=== PATIENT | female | born 1930 | race Hispanic/Latino ===

== ENCOUNTER 2018-06-25 08:44 | Outpatient (CLI) | payer MEDICARE, BC | END 2018-06-25 08:45 | disposition home or self-care (01) | LOC: LAB 08:44 ==

== ENCOUNTER 2018-07-28 08:42 | Outpatient (CLI) | payer MEDICARE, BC | END 2018-07-28 08:43 | disposition home or self-care (01) | LOC: LAB 08:42 ==

== ENCOUNTER 2018-10-04 13:38 | Emergency (ER) | payer MEDICARE, BC ==
[2018-10-04 13:52] VITALS: TEMP 98.6; BMI 29.5
[2018-10-04] MEDS ORDERED: Sodium Chloride 0.9% 1,000 ML IV SCH (14:15)
[2018-10-04 14:53] LABS: ALB/GLOB RATIO 1.3 (1.1-1.8); ALBUMIN 4.8 g/dL (3.0-4.8); ALT/SGPT 17 U/L (7-56); AST/SGOT 23 U/L (14-36); BLOOD UREA NITROGEN 18 mg/dL (7-21); CALCIUM 9.6 mg/dL (8.4-10.5); GFR NON-AFRICAN AMERICAN > 60; LIPASE 132 U/L (23-300)
[2018-10-04 14:55] LABS: BASO # 0.01 K/mm3 (0.0-2.0); BASO % 0.2 % (0.0-3.0); EOS % 0.7 % (1.5-5.0); LYMPH # 2.9 (1.2-3.4); LYMPH % 47.6 % (22.0-35.0); MEAN CELL VOLUME 88.6 fl (80.0-105.0); MEAN CORPUSCULAR HEMOGLOBIN 29.1 pg (25.0-35.0); MEAN CORPUSCULAR HGB CONC 32.8 g/dl (31.0-37.0); MEAN PLATELET VOLUME 9.6 fl (7.0-11.0); MONO # 0.4 (0.1-0.6); MONO % 6.8 % (1.0-6.0); RBC 4.47 10^6/uL (3.5-6.1); RED CELL DISTRIBUTION WIDTH 13.4 % (11.5-14.5)
[2018-10-04 15:05] LABS: TROPONIN I < 0.01 ng/mL
[2018-10-04 15:07] LABS: VENOUS BLOOD GAS BASE EXCESS 2.5 mmol/L (0.0-2.0); VENOUS BLOOD GAS PO2 78 mm/Hg (30-55)
[2018-10-04 15:11] LABS: URINE BILIRUBIN NEGATIVE (NEGATIVE); URINE BLOOD NEGATIVE (NEGATIVE); URINE GLUCOSE (UA) NEGATIVE (NEGATIVE); URINE LEUKOCYTE ESTERASE NEGATIVE Leu/uL (NEGATIVE); URINE PROTEIN NEGATIVE mg/dL (<30 mg/dL); URINE UROBILINOGEN 0.2 E.U./dL (<1 E.U./dL)
[2018-10-04 15:17] LABS: URINE APPEARANCE CLEAR (CLEAR); URINE COLOR YELLOW (YELLOW)
--- NOTE | 2018-10-04 16:19 | ED PDOC ---
Arrival/HPI - General Chief Complaint: Flu-like Symptoms Time Seen by Provider: 10/04/18 13:44 - History of Present Illness Narrative History of Present Illness (Text): 87 yr old female w/ hx of HTN, anxiety, insomnia p/w diffuse body aches. Pt notes a week of diffuse body aches and notes that she called Dr. Galvin office today and the RN working told her to come in to be evaluated in the ED. She notes the body aches are diffuse, without any chest pain or shortness of breath or abdominal pain. She denies any fall or trauma or syncope. She denies any SI or HI or depression No fevers, chills or night sweats No vaginal d/c No rash No other complaints. Past Medical History - Infectious Disease Hx of Infectious Diseases: None - Tetanus Immunization Tetanus Immunization: Unknown - Reproductive Menopause: Yes - Cardiac Hx Hypertension: Yes Hx Pacemaker: No - Pulmonary Hx Respiratory Disorders: No - Neurological Hx Paralysis: No - HEENT Hx HEENT Disorder: No - Renal Hx Renal Disorder: No - Endocrine/Metabolic Hx Endocrine Disorders: No - Hematological/Oncological Hx Blood Transfusions: No Hx Blood Transfusion Reaction: (NA) - Integumentary Hx Dermatological Disorder: No - Musculoskeletal/Rheumatological Hx Musculoskeletal Disorders: Yes - Gastrointestinal Hx Gastrointestinal Disorders: No - Genitourinary/Gynecological Hx Genitourinary Disorders: No - Psychiatric Hx Anxiety: Yes Hx Depression: No Hx Emotional Abuse: Yes Hx Physical Abuse: No Hx Substance Use: No - Surgical History Hx Orthopedic Surgery: Yes (foot kneenose) - Anesthesia Hx Anesthesia Reactions: No Hx Malignant Hyperthermia: No - Suicidal Assessment Feels Threatened In Home Enviroment: No Family/Social History Family/Social History: Unknown Family HX Smoking Status: Never Smoked Hx Alcohol Use: No Hx Substance Use: No Hx Substance Use Treatment: No Allergies/Home Meds Allergies/Adverse Reactions: Allergies Iodine and Iodide Containing Produc Allergy (Verified 10/04/18 13:42) ANAPHYLAXIS Penicillins Allergy (Verified 10/04/18 13:42) ANAPHYLAXIS seafood Allergy (Uncoded 10/04/18 13:42) ANAPHYLAXIS Home Medications: Home Meds Medication Instructions Recorded Confirmed Amtriptyline 25 mg PO DAILY 06/22/16 06/22/16 Aspirin [Aspirin Chewable] 81 mg PO 06/22/16 Calcium Carbonate [Calcium] 1,200 mg PO DAILY 06/22/16 06/22/16 Clonazepam 0.5 mg PO 06/22/16 Doxycycline Hyclate [Doryx] 100 mg PO 06/22/16 Cornelius-3 Fatty Acids [Fish Oil] 1,200 mg PO DAILY 06/22/16 06/22/16 Promethazine DM [Phenergan DM 0 ml 06/22/16 Syrup] Temazepam [Restoril] 30 mg PO HS 06/22/16 06/22/16 amLODIPine [Norvasc] 5 mg PO DAILY 06/22/16 06/22/16 Review of Systems - Review of Systems Constitutional: absent: Fatigue, Weight Change, Fevers, Night Sweats Eyes: absent: Vision Changes, Photophobia ENT: absent: Hearing Changes, Tinnitus Respiratory: absent: SOB, Cough Cardiovascular: absent: Chest Pain, Palpitations, Edema, Calf Pain, GANNON, Orthopnea, Syncope Gastrointestinal: absent: Abdominal Pain, Stool Changes, Constipation, Diarrhea, Nausea, Vomiting, Appetite Changes, Hematochezia, Hematemesis Genitourinary Female: absent: Dysuria, Frequency, Hematuria Musculoskeletal: absent: Arthralgias, Back Pain, Neck Pain Skin: absent: Rash, Pruritis, Skin Lesions, Other Neurological: absent: Headache, Dizziness, Focal Weakness Endocrine: absent: Diaphoresis, Polyuria Hemo/Lymphatic: absent: Adenopathy, Easy Bleeding Psychiatric: absent: Anxiety, Depression, Suicidal Ideation Physical Exam Vital Signs Temp Pulse Resp BP Pulse Ox 10/04/18 13:49 98.6 F 86 16 152/85 H 99 Temperature: Afebrile Blood Pressure: Hypertensive Pulse: Regular Respiratory Rate: Normal Appearance: Positive for: Well-Appearing Pain Distress: Mild Mental Status: Positive for: Alert and Oriented X 3 - Systems Exam Head: Present: Atraumatic, Normocephalic Pupils: Present: PERRL Extroacular Muscles: Present: EOMI Conjunctiva: Present: Normal Ears: Present: Normal, NORMAL TM Mouth: Present: Moist Mucous Membranes Pharnyx: Present: Normal. No: ERYTHEMA, EXUDATE, TONSILS ENLARGED Neck: Present: Normal Range of Motion. No: Meningeal Signs, MIDLINE TENDERNESS Respiratory/Chest: Present: Clear to Auscultation, Good Air Exchange. No: Respiratory Distress, Accessory Muscle Use Cardiovascular: Present: Regular Rate and Rhythm, Normal S1, S2. No: Murmurs Abdomen: No: Tenderness, Distention, Peritoneal Signs, Guarding, McBurney's Point Tender, Rovsing's Sign Present, Feeding Tubes Back: Present: Normal Inspection. No: CVA Tenderness, Midline Tenderness Upper Extremity: Present: Normal Inspection, NORMAL PULSES, Neurovascularly Intact. No: Cyanosis, Edema Lower Extremity: Present: Normal Inspection, NORMAL PULSES, Neurovascularly Intact. No: Edema Neurological: Present: GCS=15, CN II-XII Intact, Speech Normal, Motor Func Grossly Intact, Normal Cerebellar Funct, Gait Normal Skin: Present: Warm, Dry, Normal Color. No: Rashes Psychiatric: Present: Alert, Oriented x 3, Normal Insight, Normal Concentration Medical Decision Making ED Course and Treatment: 87 yr old F w/ hx of HTN, Anxiety p/w diffuse body aches. No URI symptoms or sob or cp. No cough. No fall or trauma. Pt well appearing on exam without any abd tenderness, back tenderness or meningeal signs. No rash or signs of trauma. No HUTCHINS, normal neuro exam. Pending imaging and labs 1631 Appreciate consult w/ RN on for Dr. Cedeno service: She did not send in the patient today, pt has a known dx of anxiety and was to be see on saturday. She noted recieving a call yesterday from patient. At that time patient said she would wait until appointment date. labs unremarkable pending XR pt in NAD pain improved 10/04/18 17:41 xray unremarkable abd remains non-ttp and pt notes resolution of pain neuro exam remains unremarkable and non-focal pt in NAD, walking well with stable gait clear for d/c home with return indications and f/u - Lab Interpretations Lab Results: pO2 78 mm/Hg (30-55) H 10/04/18 14:30 VBG pH 7.40 (7.32-7.43) 10/04/18 14:30 VBG pCO2 45.0 (40-60) 10/04/18 14:30 VBG HCO3 27.9 mmol/l (21-28) 10/04/18 14:30 VBG Total CO2 29.3 mmol.L (22-28) H 10/04/18 14:30 VBG O2 Sat (Calc) 98.0 % (40-65) H 10/04/18 14:30 VBG Base Excess 2.5 mmol/L (0.0-2.0) H 10/04/18 14:30 VBG Potassium 3.7 mmol/L (3.6-5.2) 10/04/18 14:30 Sodium 139.0 mmol/L (132-148) 10/04/18 14:30 Chloride 107.0 mmol/L (98-107) 10/04/18 14:30 Glucose 96 mg/dl (65-105) 10/04/18 14:30 Lactate 1.0 mmol/L (0.7-2.1) 10/04/18 14:30 FiO2 21.0 % 10/04/18 14:30 Troponin I < 0.01 ng/mL 10/04/18 14:25 Total Bilirubin 0.5 mg/dL (0.2-1.3) 10/04/18 14:25 AST 23 U/L (14-36) 10/04/18 14:25 ALT 17 U/L (7-56) 10/04/18 14:25 Alkaline Phosphatase 77 U/L (38-126) 10/04/18 14:25 Total Protein 8.3 g/dL (5.8-8.3) 10/04/18 14:25 Albumin 4.8 g/dL (3.0-4.8) 10/04/18 14:25 Globulin 3.6 gm/dL 10/04/18 14:25 Albumin/Globulin Ratio 1.3 (1.1-1.8) 10/04/18 14:25 Lipase 132 U/L (23-300) 10/04/18 14:25 Urine Color Yellow (YELLOW) 10/04/18 14:55 Urine Appearance Clear (CLEAR) 10/04/18 14:55 Urine pH 7.0 (4.7-8.0) 10/04/18 14:55 Ur Specific [place] <= 1.005 (1.005-1.035) 10/04/18 14:55 Urine Protein Negative mg/dL (<30 mg/dL) 10/04/18 14:55 Urine Glucose (UA) Negative mg/dL (NEGATIVE) 10/04/18 14:55 Urine Ketones Negative mg/dL (NEGATIVE) 10/04/18 14:55 Urine Blood Negative (NEGATIVE) 10/04/18 14:55 Urine Nitrate Negative (NEGATIVE) 10/04/18 14:55 Urine Bilirubin Negative (NEGATIVE) 10/04/18 14:55 Urine Urobilinogen 0.2 E.U./dL (<1 E.U./dL) 10/04/18 14:55 Ur Leukocyte Esterase Negative Gabby/uL (NEGATIVE) 10/04/18 14:55 - RAD Interpretation Radiology Orders: 10/04/18 14:13 CHEST TWO VIEWS (PA/LAT) [RAD] Stat - Medication Orders Current Medication Orders: Sodium Chloride (Sodium Chloride 0.9%) 1,000 mls @ 70 mls/hr IV .[id number] ROSIE Last Admin: 10/04/18 14:20 Dose: 70 mls/hr eMAR Start Stop Document 10/04/18 14:20 EQ (Rec: 10/04/18 15:21 EQ [id number]) Intravenous Solution Start Date 10/04/18 Start Time 14:20 Discontinued Medications Acetaminophen (Tylenol 325mg Tab) 650 mg PO STAT STA Stop: 10/04/18 15:38 Disposition/Present on Arrival - Present on Arrival Any Indicators Present on Arrival: Yes History of DVT/PE: No History of Uncontrolled Diabetes: No Urinary Catheter: No History of Decub. Ulcer: No History Surgical Site Infection Following: None - Disposition Have Diagnosis and Disposition been Completed?: Yes Diagnosis: Body aches Disposition: HOME/ ROUTINE Disposition Time: 17:50 Patient Problems: Current Active Problems Problem Status Onset Body aches Acute Condition: STABLE Discharge Instructions (ExitCare): Muscle and Bone Pain (DC) Additional Instructions: RADHA SANDS, thank you for letting us take care of you today. Your provider was Aston Haynes and you were treated for body pain. The emergency medical care you received today was directed at your acute symptoms. If you were prescribed any medication, please fill it and take as directed. It may take several days for your symptoms to resolve. Return to the Emergency Department if your symptoms worsen, do not improve, or if you have any other problems. Please contact your doctor or call one of the physicians/clinics you have been referred to that are listed on the Patient Visit Information form that is included in your discharge packet. Bring any paperwork you were given at discharge with you along with any medications you are taking to your follow up visit. Our treatment cannot replace ongoing medical care by a primary care provider outside of the emergency department. Thank you for allowing [facility] to be part of your care today. If you had an X-Ray or CT scan: A Radiologist will review the ED reading if any change in treatment is needed we will contact you. If you had a blood, urine, or wound culture: It will take several days for the results, if any change in treatment is needed we will contact you. If you had an STI test: It will take 48 hours for the results. Please call after 1 week if you have not heard back. Referrals: Gian Crawford MD [Family Provider] - Follow up with primary [facility] at [facility] [Outside] - Follow up with primary [facility] [Outside] - [facility] [Outside] - Follow up with primary Forms: What[employer] (Spanish)
--- NOTE | 2018-10-04 17:21 | RAD ---
Date of service: 10/04/2018 HISTORY: body aches COMPARISON: Comparison made with prior chest radiograph fifteen. TECHNIQUE: Chest PA and lateral views FINDINGS: LUNGS: Lung peguero are hyperinflated consistent with underlying COPD. PLEURA: Minor biapical pleural thickening. No evidence significant effusion or pneumothorax CARDIOVASCULAR: Heart size upper limits of normal. Mild to moderate aortic atherosclerotic calcification present. Normal cardiac size. No pulmonary vascular congestion. OSSEOUS STRUCTURES: Mild multilevel degenerative spondylosis of the thoracic spine. VISUALIZED UPPER ABDOMEN: Normal. OTHER FINDINGS: None. IMPRESSION: Mild hyperinflation; rule out underlying COPD.
[2018-10-04 17:59] VITALS: BP 141/84; PULSE 80; RESP 18; O2SAT 97
--- NOTE | 2018-10-06 07:20 | CARD ---
APPROVED REPORT Date of service: 10/04/2018 EKG Measurement Heart [id number] 150P [id number] <Conclusion> Normal sinus rhythm with sinus arrhythmia Nonspecific ST and T wave abnormality Abnormal ECG
== END 2018-10-04 18:19 | disposition home or self-care (01) ==
LOC: ED 13:38
DX: M79.10 Myalgia, unspecified site (principal); I10 Essential (primary) hypertension
CPT/HCPCS: 71046; 80053; 81003; 82550; 82803; 83690; 84484; 85025; 87040; 93005; 99284; J7030